=== PATIENT | female | born 1970 | race Caucasian/White ===

== ENCOUNTER 2018-01-16 01:15 | Observation (INO) | payer OTHER ==
[~2018-01-16] VITALS: Ht 165.1 cm; Wt 114.3 kg
[~2018-01-16 01:15] MED LIST: CHANTIX1 MG PO; ESTRACE42.5 GM VG; HYDROMORPHONE HC2 M1 PO; KEFLEX500 M1 PO; LASIX20 M1 PO; MOBIC15 M1 PO; NITROFURANTOIN100 M6 PO; NORCO 5-325 TA1 EACH PO; PROAIR HFA8.5 GM IH; TYLENOL EXTRA500 M2 PO; ULTRAM50 M1 PO; VITAMIN D350000 UNIT PO
--- NOTE | 2018-01-16 14:40 | Patient Discharge Instructions ---
Discharge Instructions General Discharge Information You were seen/treated for: parathyroidectomy (01/16/18) You had these procedures: parathyroidectomy (01/16/18) Watch for these problems: fever>101.3, increased pain, redness/swelling/drainage, dizziness, shortness of breath, chest pain No bath, but you may shower: Yes Other wound care: ok to remove outer dressing. leave white steri strips in place. keep incision clean & dry. Diet Continue normal diet: Yes Recommended Diet: Regular Activity Full Activity/No Limits: No Activity Self Limited: Yes Pounds, do NOT lift more than: 10 Other activity limits: no heavy lifting. no strenuous activity. Acute Coronary Syndrome Inclusion Criteria At DC or during hospital stay patient has or had the following: ACS DIAGNOSIS No Discharge Core Measures Meds if any: Prescribed or Continued at Discharge Meds if any: NOT Prescribed or Continued at Discharge Congestive Heart Failure Inclusion Criteria At DC or during hospital stay patient has or had the following: CHF DIAGNOSIS No Discharge Core Measures Meds if any: Prescribed or Continued at Discharge Meds if any: NOT Prescribed or Continued at Discharge Cerebrovascular accident Inclusion Criteria At DC or during hospital stay patient has or had the following: CVA/TIA Diagnosis No Discharge Core Measures Meds if any: Prescribed or Continued at Discharge Meds if any: NOT Prescribed or Continued at Discharge Venous thromboembolism Inclusion Criteria VTE Diagnosis No VTE Type NONE VTE Confirmed by (Test) NONE Discharge Core Measures - Per Current guidelines, there needs to be overlap - treatment for the first 5 days of Warfarin therapy. - If discharged on Warfarin prior to 5 days of - overlap therapy, the patient will need to be - assessed for post discharge needs including - *Post discharge parental anticoagulation - *Warfarin and/or parental anticoagulation education - *Follow up date to check INR post discharge At least 5 days overlap therapy as Inpatient No Meds if any: Prescribed or Continued at Discharge Note: Overlap Therapy is Warfarin and Anticoagulant Meds if any: NOT Prescribed or Continued at Discharge
--- NOTE | 2018-01-16 19:09 | Cons- Endocrinology ---
General Information and HPI Consulting Request Date of Consult: 01/16/18 Requested By: surgical team Reason for Consult: post-op primary hyperparathyroidism Source of Information: patient, old records Exam Limitations: unable to give history History of Present Illness: This 47-year-old woman underwent parathyroid surgery today. She had removal of a parathyroid adenoma from the left lower pole. Her parathyroid hormone has now fallen to 41. The patient is being seen in the recovery room. She is still waking up from anesthesia. Allergies/Medications Allergies: Coded Allergies: nitrofurantoin (From MACROBID) (N/V, CHILLS 01/14/18) ciprofloxacin (From CIPRO) (Mild, INCREASED LIVER VALUES 05/03/16) Home Med List: Calcium Carbonate 260 MG CALCIUM (648 MG) TABLET 650 MG PO BID VITAMIN SUPPORT Cholecalciferol (Vitamin D3) 1,000 UNIT TABLET 1,000 IU PO DAILY VITAMIN SUPPORT Start taking Vitamin D3 1000 mg tabs once finishing higher dose Vitmain D3 at home Cholecalciferol (Vitamin D3) (Vitamin D3) 50,000 UNIT CAPSULE 1 CAP PO QSAT SUPPLEMENT (Reported) Oxycodone HCl 5 MG TABLET 5 MG PO Q4-6 PRN PRN PAIN SCALE 7-10 (SEVERE) Sulfamethoxazole/Trimethoprim (Bactrim 400-80 MG Tablet) 400 MG-80 MG TABLET 1 TAB PO BID UTI Varenicline Tartrate (Chantix) 1 MG TABLET 1 TAB PO DAILY SMOKING CESSATION ( Reported) Review of Systems Comments Cannot be obtained because patient is still waking up from anesthesia Past History Medical History Neurological: migraine EENT: NONE Cardiovascular: NONE Respiratory: NONE Gastrointestinal: NONE Hepatic: ? 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 spouse, child Services at Home: None Primary Language: Kittitian Smoking Status: Unknown If Ever Smoked Functional Ability ADLs Independent: dressing, eating, toileting, bathing. Ambulation: independent IADLs Independent: shopping, housework, finances, food prep, telephone, transportation , medication admin. Exam & Diagnostic Data Last 24 Hrs of Vital Signs/I&O BP 140/70 pulse 92 Physical Exam General Appearance: sedated Head: normal appearance Eyes: Bilateral: normal appearance. Respiratory: normal breath sounds Cardiovascular: regular rate/rhythm Gastrointestinal: normal bowel sounds, soft, non-tender Extremities: normal inspection Labs/Cisco Results: Laboratory Tests 01/16 01/16 01/16 01/16 01/16 1800 1800 1710 1615 1515 Chemistry Sodium (137 - 145 mmol/L) 143 Potassium (3.5 - 5.1 mmol/L) 4.6 Chloride (98 - 107 mmol/L) 107 Carbon Dioxide (22 - 30 mmol/L) 23 Anion Gap (5 - 16) 13 BUN (7 - 17 mg/dL) 14 Creatinine (0.5 - 1.0 mg/dL) 0.7 Estimated GFR (>60 ml/min) > 60 BUN/Creatinine Ratio (7 - 25 %) 20.0 Calcium (8.4 - 10.2 mg/dL) 10.6 H Magnesium (1.6 - 2.3 mg/dL) 1.8 Albumin (3.5 - 5.0 g/dL) 3.7 PTH Intact (18.4 - 80.1 pg/ML) 41.0 191.1 H 84.8 H 01/16 01/16 1105 0837 Chemistry PTH Intact (18.4 - 80.1 pg/ML) 132.7 H 240.7 H Urines Urine Test NEGATIVE Assessment/Plan Assessment/Plan This 47-year-old woman is status post surgery for primary hyperparathyroidism. Her parathyroid hormone level has fallen to 41. Her serum calcium is still elevated at 10.6. She has been on vitamin D repletion as an outpatient as her vitamin D level was initially low. Postoperatively we need to monitor the patient's calcium, magnesium, albumin. We should place her on vitamin D one thousand units daily. We should check her vitamin D and calcium in the morning along with BUN/creatinine electrolytes and albumin and repeat PTH. When her calcium begins to come down we should start calcium carbonate 650 mg twice a day. Consult Acknowledgment - Thank you for your consult request.
[2018-01-16 20:00] VITALS: BP 132/84
[2018-01-16 22:00] VITALS: BP 140/70
[2018-01-17 00:13] VITALS: BP 134/72
[2018-01-17 02:08] VITALS: BP 126/86
[2018-01-17 06:00] VITALS: BP 108/80
--- NOTE | 2018-01-17 07:05 | PN- General Surgery ---
See Addendum Subjective Subjective: Patient seen and evaluated. No active events overnight. Does endorse moderate amount of throat pain, but is able to tolerate clear liquids. Asking to advance diet further. Pt has been oob and ambulated. Is voiding without problems. Denies cp, palpitations, wilks, numbness/tingling, f/c/s, n/v/d. No further questions at this time. 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 CV: RRR, +s1s2 Abdomen: NT/ND, bs+ HEENT: neck dressing is c/d/i, no saturation, no evidence of drainage or hematoma, supple neck Extremities: feet are warm and well perfused Current Medications: Current Medications Sig/Mina Start time Last Medication Dose Route Stop Time Status Admin Acetaminophen 1,000 MG Q6 01/16 1800 AC 01/17 IV 01/17 1759 0612 Acetaminophen 1,000 MG .STK-MED ONE 01/16 1021 DC IV 01/16 1022 Cefazolin Sodium 2 GM Q8H 01/16 2130 DC 01/17 N/A 1 UNIT IV 01/17 0559 0530 Cefazolin Sodium 2,000 MG IQ8 01/16 1900 CAN IV 01/17 0001 Cefazolin Sodium 2,000 MG ONCE 01/16 0000 DC IV 01/16 2359 Cholecalciferol 1,000 IU DAILY 01/17 0900 AC PO Dexamethasone 4 MG .STK-MED ONE 01/16 1022 DC IM 01/16 1023 Dextrose/Sodium 1,000 ML Q10H 01/16 2100 DC 01/16 Chloride IV 2099 Docusate Sodium 100 MG BID 01/16 2100 AC 01/16 PO 2217 Fentanyl Citrate 250 MCG .STK-MED ONE 01/16 1021 DC IM 01/16 1022 Heparin Sodium 5,000 UNIT Q8 01/17 0600 AC (Porcine) SC Hydromorphone HCl 2 MG .STK-MED ONE 01/16 1645 DC IM 01/16 1646 Hydromorphone HCl 2 MG .STK-MED ONE 01/16 1021 DC IM 01/16 1022 Midazolam HCl 2 MG .STK-MED ONE 01/16 1021 DC IM 01/16 1022 Morphine Sulfate 2 MG Q4-6 PRN PRN 01/16 2100 AC 01/17 IV 0134 Ondansetron HCl 4 MG Q6P PRN 01/16 2100 AC IV Ondansetron HCl 4 MG .STK-MED ONE 01/16 1022 DC IM 01/16 1023 Oxycodone HCl 5 MG Q4-6 PRN PRN 01/16 2100 AC PO Oxycodone HCl 10 MG Q4-6 PRN PRN 01/16 2100 AC 01/17 PO 0415 Varenicline 1 MG DAILY 01/17 0900 AC PO Results Last 48 Hours of Labs: Laboratory Tests 01/16 01/16 01/16 01/16 01/16 2148 1800 1800 1710 1615 Chemistry Sodium (137 - 145 mmol/L) 143 Potassium (3.5 - 5.1 mmol/L) 4.6 Chloride (98 - 107 mmol/L) 107 Carbon Dioxide (22 - 30 mmol/L) 23 Anion Gap (5 - 16) 13 BUN (7 - 17 mg/dL) 14 Creatinine (0.5 - 1.0 mg/dL) 0.7 Estimated GFR (>60 ml/min) > 60 BUN/Creatinine Ratio (7 - 25 %) 20.0 Calcium (8.4 - 10.2 mg/dL) 10.1 10.6 H Magnesium (1.6 - 2.3 mg/dL) 1.8 1.8 Albumin (3.5 - 5.0 g/dL) 4.2 3.7 25-OH Vitamin D Total (30 - 100 ng/ml) 15.9 L PTH Intact (18.4 - 80.1 pg/ML) 41.0 191.1 H 01/16 01/16 01/16 1515 1105 0837 Chemistry PTH Intact (18.4 - 80.1 pg/ML) 84.8 H 132.7 H 240.7 H Urines Urine Test NEGATIVE Assessment/Plan Assessment/Plan 47 y/o F is now POd#1 s/p parathryroidectomy Will discuss patient and plan with Dr. Marcum - Appreciate ongoing endocrinology recs (DR. La) - f/u morning labs - vitamin d, calcium, chemistry, albumin, PTH - continue current pain meds - heparin sc and athrombic pumps - zofran PRN - Vitramin D 1000 units qday per endocrine - regular diet - montior I&os Core Measures Venous Thromboembolism VTE Risk Factors Surgery No Mechanical VTE Prophylaxis d/t N/A MechProphylax Ordered No VTE Pharm Prophylaxis d/t NA PharmProphylax ordered
[2018-01-17 08:24] LABS: ABSOLUTE BASOPHIL COUNT 0 /CUMM (0.0-0.2); ABSOLUTE EOSINOPHIL COUNT 0.1 /CUMM (0.0-0.7); ABSOLUTE GRANULOCYTE CT 5.8 /CUMM (1.4-6.5); ABSOLUTE LYMPH COUNT 1.9 /CUMM (1.2-3.4); ABSOLUTE MONOCYTE COUNT 0.6 /CUMM (0.10-0.60); BASOPHIL % 0.2 % (0.0-2.0); EOSINOPHIL % 0.9 % (0-5); GRANULOCYTE % 68.9 % (42.2-75.2); HEMATOCRIT 36.5 % (37-47); MEAN CORPUSCULAR HGB 29.3 PG (27.0-31.0); MEAN CORPUSCULAR HGB CONC 33.7 G/DL (33.0-37.0); MEAN CORPUSCULAR VOLUME 86.8 FL (81.0-99.0); MEAN PLATELET VOLUME 8.5 FL (7.4-10.4); PLATELET COUNT 252 /CUMM (130-400); RBC DISTRIBUTION WIDTH 13.1 % (11.5-14.5); RED BLOOD CELL CT 4.21 /CUMM (4.20-5.40); WHITE BLOOD CELL COUNT 8.4 /CUMM (4.8-10.8)
--- NOTE | 2018-01-17 09:40 | PN- Endocrinology ---
Assessment/Plan Endoscopy Assessment: She C/O pain in the neck area but otherwise is doing well. She was able to eat breakfast this morning. Lab work this morning shows magnesium 1.7, calcium 8.7, albumin 8.6,. BUN/creatinine electrolytes are normal. Plan: The patient can be discharged today if okay from the surgical point of view. She should go home on vitamin D 50,000 units once a week. She has a few more of those tablets at home. When they run out she can just stay on vitamin D at thousand units by mouth daily available over the counter. We should also send her home on calcium carbonate 650 mg twice a day for about 1 week. She has been instructed to call if she develops any numbness or tingling of her fingers or toes or around her lips. Subjective Subjective: Doing okay Review of Systems Constitutional: Denies: chills, fever. Cardiovascular: Denies: chest pain. Respiratory: Denies: short of breath. Gastrointestinal: Denies: nausea, vomiting. Skin: Reports: no symptoms. Objective Last 24 Hrs of Vital Signs/I&O Vital Signs Date Time Temp Pulse Resp B/P B/P Pulse O2 O2 Flow FiO2 Mean Ox Delivery Rate 01/17 600 98.5 62 20 108/80 96 01/17 0208 98.6 72 20 126/86 96 01/17 0013 98.3 78 20 134/72 94 01/16 2200 98.0 79 18 140/70 95 Room Air 01/17 2132 Room Air 01/17 2000 97.6 85 18 132/84 97 Nasal 2.0L Cannula Intake & Output 01/17 0800 05 0000 Intake Total 1100 300 Output Total Balance 1100 300 Intake, IV 1100 300 Patient 252 lb Weight Vital Signs Date Time Temp Pulse Resp B/P B/P Pulse O2 O2 Flow FiO2 Mean Ox Delivery Rate 01/17 600 98.5 62 20 108/80 96 01/17 0208 98.6 72 20 126/86 96 05 0013 98.3 78 20 134/72 94 05/ 2200 98.0 79 18 140/70 95 Room Air 01/17 2132 Room Air 01/17 2000 97.6 85 18 132/84 97 Nasal 2.0L Cannula Intake & Output 01/17 0800 05 0000 Intake Total 1100 300 Output Total Balance 1100 300 Intake, IV 1100 300 Patient 252 lb Weight Physical Exam General Appearance: alert, awake, comfortable Head: normal appearance Neck: normal inspection Respiratory: normal breath sounds Cardiovascular: regular rate/rhythm Abdomen: normal bowel sounds, soft Current Medications: Current Medications Sig/Mina Start time Last Medication Dose Route Stop Time Status Admin Acetaminophen 1,000 MG Q6 01/16 1800 AC 01/17 IV 01/17 1759 0612 Acetaminophen 1,000 MG .STK-MED ONE 01/16 1021 DC IV 01/16 1022 Cefazolin Sodium 2 GM Q8H 01/16 2130 DC 01/17 N/A 1 UNIT IV 01/17 0559 0530 Cefazolin Sodium 2,000 MG IQ8 01/16 1900 CAN IV 01/17 0001 Cefazolin Sodium 2,000 MG ONCE 01/16 0000 DC IV 01/16 2359 Cholecalciferol 1,000 IU DAILY 01/17 09 AC 01/17 PO 0813 Dexamethasone 4 MG .STK-MED ONE 01/16 1022 DC IM 01/16 1023 Dextrose/Sodium 1,000 ML Q10H 01/16 2100 DC 01/16 Chloride IV 2100 Docusate Sodium 100 MG BID 01/16 2100 AC 01/17 PO 0813 Fentanyl Citrate 250 MCG .STK-MED ONE 01/16 1021 DC IM 01/16 1022 Heparin Sodium 5,000 UNIT Q8 01/17 06 AC (Porcine) SC Hydromorphone HCl 2 MG .STK-MED ONE 01/16 1645 DC IM 01/16 1646 Hydromorphone HCl 2 MG .STK-MED ONE 01/16 1021 DC IM 01/16 1022 Midazolam HCl 2 MG .STK-MED ONE 01/16 1021 DC IM 01/16 1022 Morphine Sulfate 2 MG Q4-6 PRN PRN 01/16 2100 AC 01/17 IV 0134 Ondansetron HCl 4 MG Q6P PRN 01/16 2100 AC IV Ondansetron HCl 4 MG .STK-MED ONE 01/16 1022 DC IM 01/16 1023 Oxycodone HCl 5 MG Q4-6 PRN PRN 01/16 2100 AC PO Oxycodone HCl 10 MG Q4-6 PRN PRN 01/16 2100 AC 01/17 PO 0415 Varenicline 1 MG DAILY 01/17 0900 AC PO Results Pertinent Lab/[facility] Results: Laboratory Tests 01/17 01/17 01/16 0900 0730 2148 Chemistry Sodium (137 - 145 mmol/L) 140 Potassium (3.5 - 5.1 mmol/L) 3.7 Chloride (98 - 107 mmol/L) 102 Carbon Dioxide (22 - 30 mmol/L) 26 Anion Gap (5 - 16) 12 BUN (7 - 17 mg/dL) 13 Creatinine (0.5 - 1.0 mg/dL) 0.6 Estimated GFR (>60 ml/min) > 60 BUN/Creatinine Ratio (7 - 25 %) 21.7 Calcium (8.4 - 10.2 mg/dL) 8.7 10.1 Magnesium (1.6 - 2.3 mg/dL) 1.7 1.8 Albumin (3.5 - 5.0 g/dL) 3.6 4.2 25-OH Vitamin D Total (30 - 100 ng/ml) Pending 15.9 L PTH Intact (18.4 - 80.1 pg/ML) Pending Hematology CBC w Diff NO MAN DIFF REQ WBC (4.8 - 10.8 /CUMM) 8.4 RBC (4.20 - 5.40 /CUMM) 4.21 Hgb (12.0 - 16.0 G/DL) 12.3 Hct (37 - 47 %) 36.5 L MCV (81.0 - 99.0 FL) 86.8 MCH (27.0 - 31.0 PG) 29.3 MCHC (33.0 - 37.0 G/DL) 33.7 RDW (11.5 - 14.5 %) 13.1 Plt Count (130 - 400 /CUMM) 252 MPV (7.4 - 10.4 FL) 8.5 Gran % (42.2 - 75.2 %) 68.9 Lymphocytes % (20.5 - 51.1 %) 22.9 Monocytes % (1.7 - 9.3 %) 7.1 Eosinophils % (0 - 5 %) 0.9 Basophils % (0.0 - 2.0 %) 0.2 Absolute Granulocytes (1.4 - 6.5 /CUMM) 5.8 Absolute Lymphocytes (1.2 - 3.4 /CUMM) 1.9 Absolute Monocytes (0.10 - 0.60 /CUMM) 0.6 Absolute Eosinophils (0.0 - 0.7 /CUMM) 0.1 Absolute Basophils (0.0 - 0.2 /CUMM) 0 Urines Urine Color Pending Urine Clarity Pending Urine pH Pending Ur Specific [place] Pending Urine Protein Pending Urine Ketones Pending Urine Nitrite Pending Urine Bilirubin Pending Urine Urobilinogen Pending Ur Leukocyte Esterase Pending Ur Microscopic Pending Urine Hemoglobin Pending Urine Glucose Pending 01/16 01/16 01/16 01/16 01/16 1800 1800 1710 1615 1515 Chemistry Sodium (137 - 145 mmol/L) 143 Potassium (3.5 - 5.1 mmol/L) 4.6 Chloride (98 - 107 mmol/L) 107 Carbon Dioxide (22 - 30 mmol/L) 23 Anion Gap (5 - 16) 13 BUN (7 - 17 mg/dL) 14 Creatinine (0.5 - 1.0 mg/dL) 0.7 Estimated GFR (>60 ml/min) > 60 BUN/Creatinine Ratio (7 - 25 %) 20.0 Calcium (8.4 - 10.2 mg/dL) 10.6 H Magnesium (1.6 - 2.3 mg/dL) 1.8 Albumin (3.5 - 5.0 g/dL) 3.7 PTH Intact (18.4 - 80.1 pg/ML) 41.0 191.1 H 84.8 H 01/16 01/16 1105 0837 Chemistry PTH Intact (18.4 - 80.1 pg/ML) 132.7 H 240.7 H Urines Urine Test NEGATIVE
[2018-01-17 10:00] VITALS: BP 132/78
[2018-01-17] MEDS ORDERED: OXYCODONE HCL5 M1 PO (10:04)
[2018-01-17] MEDS ORDERED: VITAMIN D31000 UNI2 PO (10:04)
[2018-01-17] MEDS ORDERED: CALCIUM CARBON260 M1 PO (10:04)
--- NOTE | 2018-01-17 10:08 | Surg Short-stay <48hrs Dis Sum ---
Visit Information Visit Dates Admission Date: 01/16/18 Discharge Date: 01/17/18 Surgical Short Stay DC Summary Admission Diagnosis: Hyperparathyroidism Final Diagnosis: Hyperparathyroidism Procedure(s): Parathyroidectomy Summary/Significant Findings: Patient underwent uncomplicated parathyroidectomy on 01/16/18. Post op course was uncomplicated Condition at Discharge: Stable Discharge Disposition: home or self care Discharge instructions provided to patient/family: Yes Post discharge follow-up plan: F/U w/ your surgeon in 1 week F/U w/ r d manager in 1 week
[2018-01-17] MEDS ORDERED: BACTRIM 400-801 EACH PO (13:24)
--- NOTE | 2018-01-20 18:38 | Operative Report ---
Operative/Inv Procedure Report Surgery Date: 01/16/18 Name of Procedure: Parathyroidectomy Pre-Operative Diagnosis: Primary hyperparathyroidism Post-Operative Diagnosis: Same Estimated Blood Loss: scant Surgeon/Material Requisitioner: Dedra HURTADO,Demarcus DAMIAN Anesthesia: general endotracheal tube Operative/Procedure Note Note: Patient was placed on the OR table supine, over the thyroid bar, after successful induction of general anesthesia and the timeouts, and setting up the NIMS electrodes for monitoring, the patient's neck from chin to chest were clipped prepped and draped in the usual sterile fashion. A PTH level was drawn at this time. We had already marked a skin crease near the cricoid in Same Day, and then infiltrated local anesthetic and then made this incision with a 15 blade, extending within the medial borders of the sternocleidomastoid muscles, favoring the left side. The incision was deepened through the subcutaneous fat and subplatysmal flaps, preserving the underlying anterior jugular veins, were made superiorly to the thyroid cartilage and inferiorly not quite to the sternal notch. The midline was identified between the strap muscles and opened vertically and then using an Allis clamp first, the sternohyoid and then the sternal thyroid muscles were and then retracted laterally to the left, off the thyroid towards the carotid sheath, at this point the dissection was continued using the Harmonic scalpel. At the deep inferior lateral aspect of the lower pole, we searched for the parathyroid gland/adenoma. Patient had multiple thyroid nodules. Preoperative nuclear imaging indicated a left lower parathyroid adenoma. I could not find initially the dissection was limited by some inflammation possibly related to recent fine-needle aspiration biopsy. I went over the films again called the radiologist intraoperatively he was confident of the study, I did send 2 specimens from around the left lower pole of the thyroid gland in case it was a small adenoma. Then later my attention was drawn to one of the thyroid nodules in the middle of the lobe posteriorly which was a little redder than the surrounding gland and was approximately of the size described preoperatively, I then dissected around the edge of the color change and it started to emerge as separate from the thyroid gland, so this was a partially intrathyroidal parathyroid gland. Eventually it was isolated and removed and we sent a blood specimen 10 minutes later which came back 41 which was an 80% drop. Note that throughout the dissection the left recurrent nerve was in view and preserved. So we checked for hemostasis and then closed by first reapproximating the strap muscles over the trachea in the middle paying care not to injure those jugular veins on either side, and then the platysma was reapproximated with a running 3-0 Vicryl suture as well, then the skin was reapproximated with a running subcuticular 4-0 Biosyn suture followed by Mastisol Steri-Strips Telfa and Tegaderm. Estimated blood loss was minimal lap and sponge counts were correct wound expectancy was clean, IV fluids crystalloid , complications none, patient tolerated the procedure well was awakened extubated and returned to the recovery room in satisfactory condition where once more awake, was able to phonate without any significant hoarseness.
== END 2018-01-17 13:50 ==
LOC: STS 01:15 → PACUH 12:57 → ENRESERV 18:15 → ENTRNSPT 19:36 → EDTRNSPTSTS 19:58 → EDTRNSPT 19:58 → 2NB 20:10 → CMPTRNSPT 20:22 → ENPENDDIS 01-17 10:07 → DELTRNSPT 01-17 13:43 → ENTRNSPT 01-17 13:44 → 2NB 01-17 13:50 → CMPTRNSPT 01-17 13:58 → STS 01-20 07:00
PROVIDERS: Physician Assistant
DX: E21.0 Primary hyperparathyroidism (principal); D35.1 Benign neoplasm of parathyroid gland; G47.33 Obstructive sleep apnea (adult) (pediatric); E66.01 Morbid (severe) obesity due to excess calories; Z68.41 Body mass index [BMI] 40.0-44.9, adult; F17.200 Nicotine dependence, unspecified, uncomplicated
CPT/HCPCS: 1255; 6040; 36415; 36592; 81001; 81025; 82436; 93005; 93010; 96374; 96375; 96376; G0378; J0131; J0690; J1100; J1644; J2405; J7042